=== PATIENT | male | born 1980 | race Caucasian/White ===

== ENCOUNTER → 2021-10-04 12:59 | Outpatient (CLI) | payer OTHER, SELFPAY ==
--- NOTE | ~2021-10-04 | US_ITS ---
US scrotum doppler INDICATION: Disorder of the middle genitalia. Probable right testicular abnormality. TECHNIQUE: Testicular sonogram utilizing grayscale and color Doppler FINDINGS: The testes are normal in size and appearance. No focal lesions are seen. The right testes measures 5.2 x 2 x 3.3 cm centimeters, and the left testis measures 4.6 x 1.9 x 3.1 cm cm. There is n ormal vascular flow to both testes. The right and left epididymides appear normal. There is no varicocele or hydrocele. IMPRESSION: 1. NORMAL TESTICULAR ULTRASOUND. Reviewed, dictated and finalized at location A.
== END ==
PROVIDERS: PCP Physician Assistant Medical; Visit Provider Physician Assistant Medical
DX: N50.89 Other specified disorders of the male genital organs (principal)
CPT/HCPCS: 76870; 93976